=== PATIENT | male | born 1975 | race Caucasian/White ===

== ENCOUNTER 2024-02-16 22:19 | Emergency (ER) | payer SELFPAY ==
[~2024-02-16] VITALS: Ht 170.2 cm; Wt 86.1 kg
[2024-02-16 22:25] VITALS: PULSE 83; RESP 16; O2SAT 98
[2024-02-16 22:30] VITALS: BP 121/90; TEMP 98.5; O2SAT 98
[2024-02-16] MEDS ORDERED: CEPH500C2 MT (22:59)
[2024-02-16] MEDS ORDERED: BO1 TP (22:59)
[2024-02-16] MEDS ORDERED: IBUP-2029 MT (22:59)
[2024-02-16] MEDS ORDERED: IBUPROFEN 600MG TABLET PO ONE (23:00)
[2024-02-16] MEDS ORDERED: CEPHALEXIN 250MG CAPSULE PO ONE (23:00)
[2024-02-17] MEDS: IBUPROFEN 600MG TABLET PO SCH (01:05)
[2024-02-17] MEDS: CEPHALEXIN 250MG CAPSULE PO SCH (01:05)
== END 2024-02-17 01:06 | disposition home or self-care (01) ==
LOC: ER 22:19
DX: S90.112A Contusion of left great toe without damage to nail, initial encounter (principal); X58.XXXA Exposure to other specified factors, initial encounter; Y93.89 Activity, other specified; Y92.89 Other specified places as the place of occurrence of the external cause; Y99.8 Other external cause status
CPT/HCPCS: 11730; 73630; 99284